=== PATIENT | female | born 1970 | race Caucasian/White ===

== ENCOUNTER → 2016-09-24 | Outpatient (CLI) | payer OTHER | LOC: CT 09-08 08:00 | DX: R10.9 Unspecified abdominal pain (principal); R11.0 Nausea; R14.0 Abdominal distension (gaseous); K38.8 Other specified diseases of appendix | CPT/HCPCS: J7050; Q9962 ==

== ENCOUNTER → 2016-10-05 | Outpatient (CLI) | payer OTHER | LOC: NM 09-10 09:00 | DX: R11.0 Nausea (principal); R14.0 Abdominal distension (gaseous); R10.9 Unspecified abdominal pain | CPT/HCPCS: 78226; A9537 ==

== ENCOUNTER → 2020-06-09 | Outpatient (CLI) | payer OTHER ==
[~2020-06-09] MED LIST: BACTROBAN OINT22 GM EXT; KEFLEX CAP 500500 MG PO; NORCO 5-325 TA1 EACH PO
== END ==
LOC: LAB 12:24
DX: D89.89 Other specified disorders involving the immune mechanism, not elsewhere classified (principal); M25.50 Pain in unspecified joint; R76.0 Raised antibody titer
CPT/HCPCS: 36415

== ENCOUNTER 2021-01-30 18:33 | Emergency (ER) | payer OTHER ==
[2021-01-30 23:07] LABS: HEMOGLOBIN 16.8 gm/dl (12.3-15.3); RED BLOOD COUNT 5.53 M/UL (4.00-5.10); WHITE BLOOD COUNT 13.5 K/UL (4.5-11.0)
[2021-01-31] MEDS ORDERED: ZOFRAN4 MG PO (01:19)
[2021-01-31] MEDS ORDERED: AUGMENTIN 875-1 EACH PO (02:12)
== END 2021-01-31 02:38 | disposition home or self-care (01) ==
LOC: ER1 18:33
PROVIDERS: Physician Assistant
DX: K52.9 Noninfective gastroenteritis and colitis, unspecified (principal); F17.210 Nicotine dependence, cigarettes, uncomplicated; Z91.040 Latex allergy status; Z20.822 Contact with and (suspected) exposure to COVID-19
CPT/HCPCS: 80053; 81001; 83690; 85025; 96374; 99284; J2405; J7030; U0002

== ENCOUNTER → 2021-05-07 | Day surgery (SDC) | payer OTHER ==
[~2021-05-07] MED LIST changes: +AUGMENTIN 875-1 EACH PO; +ZOFRAN4 MG PO
== END | disposition home or self-care (01) ==
LOC: OR 07:00
DX: K63.5 Polyp of colon (principal); A09 Infectious gastroenteritis and colitis, unspecified; K64.1 Second degree hemorrhoids; K64.4 Residual hemorrhoidal skin tags; F17.200 Nicotine dependence, unspecified, uncomplicated; E66.8 Other obesity; Z68.38 Body mass index [BMI] 38.0-38.9, adult; Z91.040 Latex allergy status; Z20.822 Contact with and (suspected) exposure to COVID-19
CPT/HCPCS: J2250; J2704; J3010; J7040